=== PATIENT | male | born 1985 | race Caucasian/White ===

== ENCOUNTER 2018-06-10 09:11 | Emergency (ER) | payer OTHER, SELFPAY ==
[2018-06-10 09:12] VITALS: BP 147/82; PULSE 104; RESP 20; TEMP 36.6; O2SAT 98; BMI 31.4
--- NOTE | 2018-06-10 09:17 | ED.RN ---
PT VERY TEARFUL IN TRIAGE. WHEN ASKED IF HE HAD THOUGHTS OF COMPLETING SUICIDE PT STATES I AM NOT OPPOSED. TO DYING BUT I COULD NOT DO THAT TO MY MOM
--- NOTE | 2018-06-10 09:25 | EKG12_ITS ---
Test Reason : ANXIETY Blood Pressure : / mmHG Vent. Rate : 075 BPM Atrial Rate : 075 BPM P-R Int : 140 ms QRS Dur : 086 ms QT Int : 390 ms P-R-T Axes : 075 045 034 degrees QTc Int : 435 ms Suspect unspecified pacemaker failure Sinus rhythm with marked sinus arrhythmia Otherwise normal ECG Confirmed by CARSON DONNELLY, PAYAM ([id number]), supervising film or videotape editor SERJIO RIOS ([id number]) on 06/13/2018 1:23:36 PM Referred By: LIAN Confirmed By:PAYAM BYRD MD
--- NOTE | 2018-06-10 09:29 | ED.DCSUM_ITS ---
- ER Visit Summary Date of Service: 06/10/18 Chief Complaint: Chest pain History of Present Illness: The patient is a 33 M who presents with chest pain that has been intermittent for the past 3 days. Patient states he has been feeling anxious which makes his chest pain worse. Patient states his anxiety is related to his marital problems. Patient denies any shortness of breath. Patient admits to some nausea but denies any vomiting. Patient denies any diaphoresis. Patient states nothing else seems to make the pain better or worse. Patient does not take any medication for anxiety. Patient denies any suicidal homicidal ideations. Physical Examination: Vital signs are stable. Patient is afebrile. Patient is in no acute distress. Oral mucosa is pink and moist. Neck is supple. Trachea is midline. There is no JVD noted. Heart was regular rate and rhythm. Lungs are clear and equal bilateral. There is good respiratory effort noted. Abdomen is soft. Bowel sounds are normal. There is no tenderness noted. Cranial nerves II through XII are intact. There are no focal motor or sensory deficits noted. The remaining physical exam is within normal limits. Test Results: EKG showed a normal sinus rhythm with a rate of 75. There are no acute ST or T-wave changes noted. Chest x-ray does not show any acute cardiopulmonary process. CBC, basic metabolic profile, troponin were obtained were all within normal limits. Emergency Department Course and Treatment: Patient was given a dose of Vistaril here. Patient felt better on reevaluation. Patient was given a prescription for a short-term course of Vistaril. Patient was instructed to follow-up with his primary care physician in 3-5 days. Patient understood and was agreeable with the plan. All questions were answered. Disposition: Discharged home Impression: Acute anxiety This note was generated with [employer] dictation software. It may contain incorrect words, spelling, and punctuation that were not noted in review of the chart prior to signing ED Disposition - Plan for ED Patient: Disposition: Home or Assisted Living Chief Complaint: Anxiety Diagnosis: Acute anxiety Instructions: ED Stress React Prescriptions: hydrOXYzine pamoate capsule [Vistaril pamoate capsule] 25 mg PO TID PRN PRN 5 Days #15 cap PRN Reason: Anxiety Referrals: Triston Townsend MD [Primary Care Provider] -
[2018-06-10] MEDS: hydrOXYzine PAM 25 MG Capsule PO (09:38)
--- NOTE | 2018-06-10 09:39 | NURSING ---
NO OLD EKGS
--- NOTE | 2018-06-10 09:53 | RAD_ITS ---
STUDY: X-RAY CHEST REASON FOR EXAM: Male, 33 years old. Chest pain. TECHNIQUE: PA and lateral views of the chest. COMPARISON: None. FINDINGS: Hyperinflation. Scattered calcified granulomas. There is no demonstrated pleural abnormality. Normal size heart. Normal mediastinum and mode. Normal visualized pulmonary arteries. Normal visualized aortic arch and descending thoracic aorta. Normal visualized thoracic spine. Normal visualized ribs, clavicles, and shoulders. There is no demonstrated abnormality of the visualized soft tissue structures of the upper abdomen. RAD/Chest PA and Lateral IMPRESSION: Hyperinflation. Scattered calcified granulomas. Electronically Signed: Constantino Newsome MD at 10:24 EDT Tel [phone], Service support ,
[2018-06-10 09:56] LABS: Absolute Neutrophil Count 4.8 X10^3/uL (2.0-7.7); Basophil# 0.01 X10^3/uL; Basophil% 0.1 % (0-1); Eosinophil# 0.08 X10^3/uL; Eosinophils% 1.1 % (0-5); Hemoglobin 15.8 g/dl (13.0-16.5); Lymphocyte % 22.4 % (19-41); Mean Corp Hgb Conc 34.3 g/gl (32-36); Mean Corpuscular Hgb 31.3 pg (27.0-32.0); Mean Corpuscular Volume 91.3 fL (80-94); Monocyte# 0.67 X10^3/uL; Monocyte% 9.4 % (0-10); Neutrophil # 4.78 X10^3/uL (2.7-7.7); Neutrophil % 66.9 % (47-70); POSITIVE COUNT NO; POSITIVE DIFFERENTIAL NO; POSITIVE MORPHOLOGY NO; Platelet Count 217 K/mm3 (150-450); RBC Distribution Width CV 12.7 % (11.6-14.6); RBC Distribution Width SD 42.2 fl (35.1-43.9); Red Blood Count 5.04 M/mm3 (4.6-6.2); White Blood Count 7.2 K/mm3 (4.4-11.0)
[2018-06-10 10:07] LABS: Anion Gap 8 (5-15); BUN 11 mg/dL (7-18); BUN/Creat Ratio 11.3 RATIO (10-20); Calcium,Total 9.2 mg/dL (8.5-10.1); Chloride 104 mmol/L (98-107); Creatinine, Serum 0.97 mg/dL (0.70-1.30); EST Glomerular Filtration Rate 95 mL/min (>60); Est Glom Filt Rate - Afr Amer 115 mL/min (>60); Estimated Creatinine Clearance 116.44 ml/min; Glucose 107 mg/dL (74-106); Potassium 3.3 mmol/L (3.5-5.1); Sodium Level 139 mmol/L (136-145)
[2018-06-10 11:14] VITALS: BP 144/81; PULSE 77; RESP 16; O2SAT 99
[2018-06-10 12:06] VITALS: BP 168/87; PULSE 76; RESP 16; O2SAT 99
[2018-06-10 12:22] VITALS: BP 168/87; PULSE 71; RESP 16; O2SAT 100
== END 2018-06-10 12:23 | disposition home or self-care (01) ==
PROVIDERS: Emergency Provider Emergency Medicine; Family Provider Family Medicine; PCP Family Medicine
DX: F41.9 Anxiety disorder, unspecified (principal)
CPT/HCPCS: 71046; 80048; 84484; 85025; 93005; 99284; A4216

== ENCOUNTER 2018-07-14 15:18 | Emergency (ER) | payer OTHER, SELFPAY ==
[2018-07-14 15:19] VITALS: BP 134/86; PULSE 89; RESP 14; TEMP 36.8; O2SAT 97; BMI 31.5
--- NOTE | 2018-07-14 15:47 | RAD_ITS ---
STUDY: X-RAY - RIGHT HAND REASON FOR EXAM: Male, 33 years old. Laceration of the first and second digits. TECHNIQUE: 3 view(s) of the hand. COMPARISON: None. FINDINGS: Normal radiocarpal articulation. Normal distal radioulnar joint. Normal visualized carpal bones. Normal carpal articulations Normal carpometacarpal articulation of the thumb. Normal second through fifth carpometacarpal joints. Normal metacarpi. Normal metacarpophalangeal joint of the thumb. Normal interphalangeal joint of the thumb. Normal proximal and distal phalanges of the thumb. Normal metacarpophalangeal joints of the second through fifth fingers. Normal proximal and distal interphalangeal joints of the second through fifth fingers. Normal phalanges of the second through fifth fingers. Soft tissue swelling. RAD/Hand Min 3 Views IMPRESSION: Soft tissue swelling. No radiopaque foreign body is seen. Electronically Signed: Constantino Newsome MD at 16:07 EDT Tel [phone], Service support ,
--- NOTE | 2018-07-14 15:47 | ED.VISSUMM ---
- ER Visit Summary Date of Service: 07/14/18 Chief Complaint: Right hand laceration History of Present Illness: The patient is a 33 M presenting with right hand laceration. Patient states this occurred early this morning. He cut his right thumb on a broken beer bottle. He tried to glue it at home with no improvement. He went to his primary care physician today and was sent to the ED for further evaluation. He is right-handed. His tetanus is up-to-date. Physical Examination: Vitals are stable. Patient is afebrile. Alert no acute distress. HEENT exam is unremarkable. Lungs are clear and equal bilaterally. Heart is regular rate and rhythm. Extremities 2 cm laceration palmar aspect of proximal right thumb. Tendon function is intact. Active full range of motion. Normal cap refill. No focal neurologic deficit. Remainder of exam is unremarkable. Emergency Department Course and Treatment: X-ray right hand shows no foreign body, there is evidence of a healed boxer type fracture of the distal fifth metacarpal. Residual deformity. Wound was irrigated. Anesthetized with lidocaine. 3, 5-0 simple sutures were placed. Patient tolerated this well. Advised wound care instructions. Advised to follow-up with primary care physician. Advised return to ED for worsening complaints. Disposition: Discharge home Impression: Right hand laceration, laceration repair This note was generated with [employer] dictation software. It may contain incorrect words, spelling, and punctuation that were not noted in review of the chart prior to signing ED Disposition - Plan for ED Patient: Chief Complaint: Laceration Instructions: ED Laceration Hand Referrals: Triston Townsend MD [Primary Care Provider] -
--- NOTE | 2018-07-14 16:54 | ED.DEP ---
ED Disposition - Plan for ED Patient: Chief Complaint: Laceration Instructions: ED Laceration Hand Referrals: Triston Townsend MD [Primary Care Provider] -
== END 2018-07-14 17:16 | disposition home or self-care (01) ==
PROVIDERS: Emergency Provider Emergency Medicine; Family Provider Family Medicine; PCP Family Medicine
DX: S61.411A Laceration without foreign body of right hand, initial encounter (principal); W25.XXXA Contact with sharp glass, initial encounter; Y93.9 Activity, unspecified; Y92.009 Unspecified place in unspecified non-institutional (private) residence as the place of occurrence of the external cause; Y99.9 Unspecified external cause status
CPT/HCPCS: 12001; 73130; 99283

== ENCOUNTER 2020-02-08 10:52 | Observation (INO) | payer OTHER, SELFPAY ==
[2020-01-28 14:16] VITALS: BMI 36.6
--- NOTE | 2020-02-07 23:05 | PCM.HP.BLA ---
History and Physical Date of Admission: 02/08/20 HISTORY OF PRESENT ILLNESS 34 year old man presents with a recurrent pilonidal cyst that has worsened over the last 5 months. He first developed it about 10 years ago and had an I&D procedure. He has had no formal excision. He denies fever. He denies trauma. He does have intermittent drainage from his pilonidal cyst. Could not express any today. He is not on any antibiotics at this time. He presents at this time for further evaluation and treatment. PAST MEDICAL HISTORY Back problem Corneal laceration Finger fracture Vision problem PAST SURGICAL HISTORY appendectomy ALLERGIES No Known Allergies MEDICATIONS doxycycline monohydrate FAMILY HISTORY Unknown - Arthritis, Breast cancer, Colon cancer, Hypertension, Hyperlipidemia, CVA (cerebral vascular accident) SOCIAL HISTORY Smoking Status: Former smoker alcohol intake: current substance use type: does not use REVIEW OF SYSTEMS General - Denies fever and weight loss. Has fatigue. Eyes - Denies cataracts and glaucoma. ENT - Denies nasal congestion and sore throat. Endocrine - Denies excessive thirst and urination. Skin - Denies suspicious lesions and skin cancer. Has recurrent complicated extensive pilonidal cyst in the sacral area. Musculoskeletal - Has joint pain, joint stiffness, weakness of muscles and joints, back pain. Denies arthritis. Neuro - Denies headaches. Cardiovascular - Denies chest pain, fatigue, and shortness of breath with exertion. Psych - Denies anxiety and depression. Respiratory - Denies chronic cough and shortness of breath. Patient is a former smoker. Gastrointestinal - Denies nausea, vomiting, diarrhea, and constipation. Hematologic - Denies abnormal bruising and bleeding. Genitourinary - Denies hematuria and urinary frequency. PHYSICAL EXAMINATION General - Alert and Oriented. HEENT - PERRL. EOMI. Throat is clear. Neck - Supple and nontender. No cervical adenopathy. Lungs - Clear to auscultation. Heart - Regular rate and rhythm. Abdomen - Soft and nondistended. Extremities - FROM. No axillary adenopathy. Radial pulses are palpable. Back - In his lower back in the sacral area is an area of chronic scarring from a recurrent pilonidal cysts. There are multiple tracks present. The scar cluster measures 4.5 cm. There may be some extension to the right side. No purulent drainage could be expressed today. No fluctuance. No cellulitis. Some tenderness to palpation. Neuro - CN II-XII grossly intact. Psych - Normal mood and affect. ASSESSMENT 1. Recurrent complicated extensive pilonidal cyst sacral area with possible extension to the right. 2. Former smoker. PLAN Will send a script for Doxycycline that he will take for flare ups until his surgery is done. Recommend operative intervention with excision of this recurrent complicated extensive pilonidal cyst sacral area with possible extension to the right. Will leave the wound open and begin wound care with the VAC. Other options include daily Silver dressing changes. At the time of surgery, the tissue will be sent to Pathology for analysis to rule out carcinoma and to Microbiology for culture. A positive culture will necessitate antibiotic therapy. Surgery will be done under general anesthesia with a surgical observation overnight stay in the hospital. After discharge he will followup at the [facility]. If there is a plateau in the healing process, can proceed with delayed closure with skin grafting. Also discussed with him that this complex wound can be closed with local fasciocutaneous flaps. It would require up to 6 weeks bedrest to allow adequate healing. If the patient gets up too soon, there is increased risk of seroma formation that can lead to wound healing problems. Patient is not interested in bedrest that long. Patient was informed of the risks and complications of the procedure including alternatives to surgery. These were discussed with the patient personally. Patient voices understanding and wishes to proceed. Some of the risks and complications were included in a form from the [place] [employer].
[2020-02-08] VITALS (10 sets, daily range): BP systolic 105–160; BP diastolic 60–107; PULSE 56–78; RESP 16–18; TEMP 36.1–36.7; O2SAT 95–99; BMI 37.3
--- NOTE | 2020-02-08 | PILCYST_PTH ---
PATIENT: EREN SAWANT LOC: MS3 U#:[id number] AGE/SX: 34/M ROOM: MS318 RE02/08/[address]: Dr. Rudolph Jacques MD : [id number] BED: 1 DIS: 02/09/2020 SPEC #: [id number] RECD: 02/08/20 13:15 STATUS: AYSHA REDiann #: [id number] YESSY: 02/08/20 00:[address]: Rudolph Jacques DEPT: SURGICAL PATHOLOGY RECD BY: Ki Zheng ENTERED: 02/08/20 13:16 SP TYPE: Pilonidal OTHR DR: HERI Mejia Tissues: PILONIDAL TISSUE Procedures: Surgery Specimen Level III HEADER OPERATION: Excision pilonidal cyst, surgical prep sacral area PRE-OP DIAGNOSIS: Recurrent complicated extensive pilonidal cyst sacral area with possible extension to the right TISSUE SUBMITTED: Pilonidal cyst MICROSCOPIC DIAGNOSIS Skin and soft tissue of sacral region, excision: Pilonidal cyst. AM:jason 02/09/20 MICROSCOPIC DESCRIPTION Slides are reviewed. GROSS DESCRIPTION Received in fixative is one container labeled with the patient's name and designated pilonidal cyst. The specimen consists of a piece of skin with underlying tissue measuring 7 x 3 cm and up to 2 cm in thickness. Also present in the container is a piece of skin with underlying tissue measuring 7.5 x 0.8 cm and up to 2.5 cm in thickness. Sections do not reveal any mass lesion. Sections reveal focal pinkish, congested area measuring 1 cm in greatest dimension. Manager Field Sales sections are submitted in two cassettes. / SJ:jason 02/08/20 TC:2 CPT: 13330
[2020-02-08] MEDS: Lactated Ringers 1,000 ML 100 ML IV ×2 (09:14→11:37)
[2020-02-08] MEDS: Cefazolin 2 GM in 0.9% Normal Saline 100 ML IV (10:07)
--- NOTE | 2020-02-08 10:45 | PCM.OPRPT ---
Report of Operation Date of Procedure: 02/08/20 Pre-Operative Diagnosis: 1. Recurrent complicated extensive pilonidal cyst sacral area with possible extension to the right. 2. Former smoker. Post-Operative Diagnosis: 1. Recurrent complicated extensive pilonidal cyst sacral area with extension to the right. 2. Former smoker. Surgery/Procedure Performed:: Surgical preparation sacral area with excision complicated extensive pilonidal cyst with extension to the right (48 cm2). Description of Surgical Findings:: 34 year old man presents with a recurrent pilonidal cyst that has worsened over the last 5 months. He first developed it about 10 years ago and had an I&D procedure. He has had no formal excision. He denies fever. He denies trauma. He does have intermittent drainage from his pilonidal cyst. Could not express any today. He is not on any antibiotics at this time. Patient was informed of the risks and complications of the procedure including alternatives to surgery. These were discussed with the patient personally. Patient voices understanding and wishes to proceed. Some of the risks and complications were included in a form from the [employer]. Size of defect sacral area - 8 x 6 x 5 cm. field account director: None Type of Anesthesia:: General Specimen's removed: Pilonidal cyst sacral area to Pathology and Microbiology. Drains: None. Estimated Blood Loss (mL): 50 ml. Description of Procedure: Patient was taken to the OR in supine position and was placed under general anesthesia. He was placed in the prone position and his sacral and gluteal areas were prepped and draped in the usual fashion. Using skin prep and tape, the adjacent area was placed on stretch to get better exposure to the the pilonidal cyst area. SCD's were placed for DVT prophylaxis. Perioperative antibiotics were given intravenously. Using xylocaine with epinephrine, the pilonidal cyst area was infiltrated. After waiting 5 minutes for the anesthetic to take effect, I proceeded with excision of this complicated extensive pilonidal cyst down into the subcutaneous tissue. There were multiple extensions to the right side that were excised. Exudate and fat necrosis were seen. Extensive scarring was also seen. This abnormal scar tissue was excised down to the fascia. No bone was exposed. Bone was palpable. There was the beginning of extension inferiorly as well just inferior to the coccyx, but there was no tracking was noted toward the anal opening. Tissue that was excised was sent to Pathology for analysis to rule out carcinoma and to Microbiology for culture. A positive culture will necessitate antibiotic therapy. The wound was irrigated with saline. Hemostasis was obtained with electrocautery. The size of the defect after excision of this complicated extensive pilonidal cyst was 8 x 6 x 5 cm or 48 cm2. The wound was dressed with Mepitel nonadherent dressing followed by Kerlix gauze and Betadine, followed by dry Kerlix gauze and ABD pad for a compression dressing. Patient tolerated procedure well and sent to PACU in satisfactory condition. Patient will be sent upstairs for postop care. The VAC will be placed tomorrow. He will be discharged after the VAC is approved and he is tolerating po analgesia. After discharge he will follow up at the [facility]. Grafts/Implants Used: None. - Complications None. - Admit VTE Documentation VTE Present on Admission: No VTE Mechan Device Prophylaxis: SCD's VTE Pharm Prophylaxis ordered?: No Surgery Charges CPT - 34134 ICD-10 - L05.91, Z87.891
[2020-02-08] MEDS: Lactated Ringers 1,000 ML 60 ML IV (12:08)
[2020-02-08] MEDS: oxyCODONE 5 MG Tablet 10 MG PO ×2 (12:16→19:33)
[2020-02-08] MEDS: Cefazolin 1 GM/50 ML BAG IV (18:25)
[2020-02-08] MEDS: Docusate Sodium 100 MG Capsule PO (20:27)
[2020-02-09 01:09] VITALS: BP 115/71; PULSE 65; RESP 16; TEMP 36.6; O2SAT 99
[2020-02-09] MEDS: Cefazolin 1 GM/50 ML BAG IV ×2 (01:13→10:32)
[2020-02-09] MEDS: oxyCODONE 5 MG Tablet 10 MG PO ×3 (01:15→13:33)
[2020-02-09] MEDS: Lactated Ringers 1,000 ML 60 ML IV (01:49)
[2020-02-09 04:18] VITALS: BP 127/83; PULSE 61; RESP 14; TEMP 36.6; O2SAT 98
[2020-02-09 07:27] LABS: Hematocrit 47.4 % (40-54); Hemoglobin 15.7 g/dL (13.0-16.5); Mean Corp Hgb Conc 33.1 g/dL (32-36); Mean Corpuscular Hgb 30.8 pg (27.0-32.0); Mean Corpuscular Volume 92.9 fL (80-94); Platelet Count 185 K/mm3 (150-450); RBC Distribution Width CV 12.2 % (11.6-14.6); RBC Distribution Width SD 42.5 fl (35.1-43.9); White Blood Count 7.8 K/mm3 (4.4-11.0)
[2020-02-09] MEDS: Docusate Sodium 100 MG Capsule PO (07:39)
[2020-02-09 07:51] LABS: Anion Gap 5 (5-15); BUN 10 mg/dL (7-18); BUN/Creat Ratio 11.5 RATIO (10-20); Calcium,Total 8.8 mg/dL (8.5-10.1); Chloride 104 mmol/L (98-107); Creatinine, Serum 0.87 mg/dL (0.70-1.30); EST Glomerular Filtration Rate 107 mL/min (>60); Est Glom Filt Rate - Afr Amer 130 mL/min (>60); Estimated Creatinine Clearance 120.77 ml/min; Glucose 97 mg/dL (74-106); Potassium 4.2 mmol/L (3.5-5.1); Prealbumin 31.1 mg/dL (20.0-40.0); Sodium Level 139 mmol/L (136-145)
[2020-02-09 10:15] VITALS: BP 134/95; PULSE 77; RESP 16; TEMP 36.6; O2SAT 98
--- NOTE | 2020-02-09 10:57 | NURSING ---
wound photo: sacrum
--- NOTE | 2020-02-09 13:03 | PCM.PN.SRG ---
Subjective: Postop #1 Patient is resting comfortably. VAC applied. - Physical Exam Vitals/I&O's: Vital Signs Temp Pulse Resp BP Pulse Ox 97.8 F 77 16 134/95 H 98 02/09/20 10:15 02/09/20 10:15 02/09/20 10:15 02/09/20 10:15 02/09/20 10:15 Oxygen Delivery Method Room Air Weight: 252 lb 10.396 oz Body Mass Index (BMI) 37.3 Intake and Output for Last 24 Hours 02/07/20 02/08/20 02/09/20 23:59 23:59 23:59 Intake Total 2216.67 / 2216.67 1391 / 1391 Balance 2216.67 / 2216.67 1391 / 1391 General: Alert, Oriented x3 HEENT: PERRLA, EOMI Oral: Moist Mucosa Neck: Supple Abdomen: Soft, Non-Distended Skin: Ulcer/ Wound - sacral wound is stable. No active bleeding noted. VAC applied without difficulty. Neurological: Cranial nerves II-XII grossly intact Psych/Mental Status: Normal Affect, Appropriate Microbiology Past 72 Hours 02/08/20 10:34 Tissue - Sacral Gram Stain - Final 02/08/20 10:34 Tissue - Sacral Wound Culture - Preliminary No growth-Final to follow Laboratory Results 02/09/20 06:48: WBC 7.8, RBC 5.10, Hgb 15.7, Hct 47.4, MCV 92.9, MCH 30.8, MCHC 33.1, RDW Std Deviation 42.5, RDW Coeff of Beatriz 12.2, Plt Count 185, MPV 9.0 02/09/20 06:48: Sodium 139, Potassium 4.2, Chloride 104, Carbon Dioxide 30.0, Anion Gap 5, BUN 10, Creatinine 0.87, Estim Creat Clear Calc 120.77, Est GFR (MDRD) Af Amer 130, Est GFR (MDRD) Non-Af 107, BUN/Creatinine Ratio 11.5, Glucose 97, Calcium 8.8, Prealbumin 31.1 Current Medications Diazepam (Valium) 5 mg PO 4X/DAY PRN PRN PRN Reason: SPASMS Docusate Sodium (Colace) 100 mg PO BID JOSEPH Last Admin: 02/09/20 07:39 Dose: 100 mg Documented by: Hydromorphone HCl (Dilaudid Inj) 1 mg IV Q3H PRN PRN PRN Reason: Pain Score 6-10/10 Cefazolin Sodium () 1 gm in 50 mls @ 100 mls/hr IV Q8H [facility] Last Infusion: 02/09/20 11:02 Dose: Infused Documented by: Lactated Ringer's () 1,000 mls @ 60 mls/hr IV .[id number] [facility] Last Admin: 02/09/20 01:49 Dose: 60 mls/hr Documented by: Nutritional Formula (Paul - Rankin Flavor) 1 packet PO BIDCM [facility] Last Admin: 02/09/20 07:38 Dose: 1 packet Documented by: Ondansetron HCl (Zofran) 4 mg IV Q6H PRN PRN PRN Reason: NAUSEA Oxycodone HCl (Oxyir) 10 mg PO Q4H PRN PRN PRN Reason: Pain Score 4-5/10 Last Admin: 02/09/20 07:38 Dose: 10 mg Documented by: Promethazine HCl (Phenergan Tablet) 25 mg PO Q4H PRN PRN PRN Reason: NAUSEA/VOMITING Sodium Chloride () 10 - 40 ml IV UD PRN PRN Reason: SALINE FLUSH Medical Necessity - Tobacco Use Smoking Status: Former smoker Tobacco Use: Non-smoker Assessment/Plan 1. Recurrent complicated extensive pilonidal cyst sacral area with extension to the right. 2. Former smoker. 3. s/p surgical preparation sacral area with excision complicated extensive pilonidal cyst with extension to the right (48 cm2). Patient is tolerating po analgesia. VAC has been applied and has been approved. To be changed three times per week at 150 mmHg continuous suction. Operative culture is negative thus far. Will discharge home on Doxycycline. Prealbumin was 31.1 Encourage nutritional supplementation with protein to help the healing process. Discharge home today. Wrote script for Doxycycline. Wrote scripts for Percocet for pain (40 tabs) and for Valium for spasm (30 tabs). Wrote script for Colace for constipation (60 tabs). Followup at [facility] next Saturday02/15/20.
--- NOTE | 2020-02-09 13:21 | PCM.DC ---
You will use the following diet at home:: No restrictions, Other - encourage nutritional supplementation with protein to help the healing process. Discharge Activity: May not drive while taking narcotic pain medications., May Shower - on the days the vac is changed. May shower in (days): 2 - on the days the vac is changed. May resume sexual activity in: No Restrictions Weight Bearing Status: Weight bearing as tolerated Call your doctor if your incision/area has: Continuous Slow Oozing, Sudden Increased Bleeding, Increased Pain/ Swelling, Increased Redness, Foul Smelling Discharge, Swelling at the incision site Call your doctor if you observe: Fever of 101 or Higher, Coldness, Increased Pain, Shortness of breath, Chest pain, Calf discomfort, Uncontrolled pain Suture Line Care: - - vac changes three times per week at 150 mmHg continuous suction. Change Dressing in (Days):: 2 - vac changes three times per week. Cleanse incision/area with: Soap & Water - may cleanse the wound with soap and water at the time of the vac change., - - may shower on the days the vac is changed. Allergies/Adverse Reactions: Allergies No Known Allergies Allergy (Verified 02/08/20 08:51) Medications to take at Discharge Diazepam [Valium] 5 mg PO 4X/DAY PRN PRN #30 tablet 02/09/20 Docusate Sodium [Colace] 100 mg PO BID #60 cap 02/09/20 Doxycycline Monohydrate 100 mg PO BID 14 Days #28 cap 02/09/20 Oxycodone HCl/Acetaminophen [Percocet 5/325] 1 tablet PO Q4H PRN PRN 7 Days #40 tablet 02/09/20 The following prescriptions were given: Docusate Sodium [Colace] 100 mg PO BID #60 cap Transmission Status: Sent to [address] Doxycycline Monohydrate 100 mg PO BID 14 Days #28 cap Transmission Status: Pending to [address] Oxycodone HCl/Acetaminophen [Percocet 5/325] 1 tablet PO Q4H PRN PRN 7 Days #40 tablet PRN Reason: Pain Score 4-5/10 [facility] [place] [id number] Diazepam [Valium] 5 mg PO 4X/DAY PRN PRN #30 tablet PRN Reason: Spasms Transmission Status: Received by [id number] [facility] Primary Care Physician: Ernesto Mason PA [Primary Care Provider] - Test Results: Test results from this visit will be discussed in further detail at your follow-up appointment, if applicable. Please Follow Up With: Rudolph Jacques MD - call [phone] if any questions. When: saturday02/15/20 at [facility] at 1030am. Proposed Discharge Date: 02/09/20
--- NOTE | 2020-02-09 13:52 | NURSING ---
Pt switched over to the home VAC. pt and deny questions. proof of delivery form signed and faxed to [facility].
--- NOTE | 2020-02-09 14:14 | CASEMGMT ---
ANGELINE VASQUEZ updated that patient will need HHC for vac changes at discharge. ANGELINE VASQUEZ in to discuss with patient and . states she works for [facility] and they have already started auth for patient. states HHC will need order and instructions at discharge. ANGELINE VASQUEZ faxed referral to [facility]. ANGELINE VASQUEZ updated and patient. No further questions at this time.
== END 2020-02-09 14:14 | disposition home health service (06) ==
LOC: SDC 11:23 → MS3 11:23
PROVIDERS: Admitting Provider Surgery; PCP Physician Assistant; Referring Provider Surgery; Visit Provider Surgery
PROC: (CPT 11771; principal; 2020-02-08 09:45)
DX: L05.91 Pilonidal cyst without abscess (principal); Z87.891 Personal history of nicotine dependence
CPT/HCPCS: 00300; 11771; 36415; 80048; 84134; 85027; 87070; 87075; 87077; 87102; 87186; 87205; 87206; 88304; 96365; 96366; 99218; 99251; J7120; G0378; G0463; J2405

== ENCOUNTER 2020-02-22 13:00 | Outpatient (RCR) | payer OTHER, SELFPAY ==
[2020-02-08 11:54] VITALS: BMI 37.3
[2020-02-15 10:44] VITALS: BP 113/77; PULSE 80; RESP 18; TEMP 36.2; BMI 35.9
--- NOTE | 2020-02-15 17:23 | PCM.WC.PN ---
Type of Wound Date of Service: 02/15/20 Chief Complaint: Open surgical wound sacral area. History of Wound: Surgery 02/08/20 - Surgical preparation sacral area with excision complicated extensive pilonidal cyst with extension to the right (48 cm2). Wound care - VAC. Operative culture - Staphylococcus epidermidis and Staphylococcus lugdunensis. He was placed on Doxycycline. Pathology - pilonidal cyst. Prealbumin from 02/09/20 was 31.1. Encourage nutritional supplementation with protein to help the healing process. He is tolerating the VAC changes with Percocet and Valium. Today he denies fever. His appetite is good. Progress of Wound: Improved since surgery on 02/08/20. - Physical Exam Vital Signs Temp Pulse Resp BP 97.2 F L 80 18 113/77 02/15/20 10:44 02/15/20 10:44 02/15/20 10:44 02/15/20 10:44 Wound Measurements and Assessment WC - Nurse 1 - General Ulcer Measurement Start: 02/15/20 10:44 Freq: Status: Active Protocol: Activity Type Activity Date Activity User E-Sign Co-Sign Detail Recorded Client Recorded Date Recorded By Document 02/15/20 10:44 MW [id number] 02/15/20 11:01 MW 02/15/20 10:44 Wound Center Nurse 1 [Ulcer Assessment] #1 sacrum - pilonidal -Combined with other wound No -Current Size (cm) - Length 9.5 -Current Size (cm) - Width 4.2 -Current Size (cm) - Depth 5.4 -Total Square Cm 39.90 -Date of Last Picture (Recall this 02/15/20 field) -Photo Taken Yes -Epithelialization None Present -Tunneling No -Undermining/Tunneling No -Circular Undermining No -Exudate Amt Large -Exudate Type Serosanguineous -Wound Margin Distinct, Outline Attached -Granulation Amt Medium (34-66%) -Granulation Quality Red -Slough/Fibrin Yes -Necrosis Amt Medium (34-66%) -Necrotic Tissue Type Adherent Slough -Structure Exposed N/A -Texture (Dianelys-wound Skin Appearance) Assessed, Scarring -Moisture (Dianelys-wound Skin Appearance No Abnormality, ) Assessed -Color (Dianelys-wound Skin Appearance) No Abnormality, Assessed -Temperature (Dianelys-wound Skin No Abnormality Appearance) (Pt Warm) -Tenderness on Palpation (Dianelys-wound No Skin Appearance) -Ulcer Cleansing soap and water -Foul Odor after Cleansing No -Anesthetic Used 4% Lidocaine Solution,5% Lidocaine Gel [Edema Assessment] -Lower Limb Edema Present No Debridement Note Wound debrided: #1 Sacral area. Laterality: Not Applicable Wound Grade/Stage: 2. No debridement was completed today - He had recent surgery on 02/08/20. Assessment/Plan Assessment: 1. Recurrent complicated extensive pilonidal cyst sacral area with extension to the right. 2. Open surgical wound sacral area. 3. Former smoker. 4. s/p surgical preparation sacral area with excision complicated extensive pilonidal cyst with extension to the right (48 cm2). Plan: Continue VAC to the sacral area. Instructed the patient's who is a nurse and is doing the VAC changes to press down to the bone and make sure the black foam goes to the bone. There is the risk that if it is placed too superficially, healing occurs rapidly on a superficial level and the deeper wound becomes closed which can accumulate fluid leading to a recurrence. She voiced understanding. Operative cultures showed Staphylococcus epidermidis and Staphylococcus lugdunensis. He was placed on Doxycycline. Prealbumin from 02/09/20 was 31.1. Encourage nutritional supplementation with protein to help the healing process. Renewed his Percocet for pain (40 tabs) and his Valium for spasm (30 tabs). Followup one week. [id number]: [id number] Global Visit - ICD-10 - Z48.89, L05.91, S31.000A, Z87.891
[2020-02-22 13:12] VITALS: BP 128/84; PULSE 98; RESP 20; TEMP 37.2; BMI 35.9
--- NOTE | 2020-02-22 14:59 | PCM.WC.PN ---
(1) Open wound of lower back Status: Acute Current Visit: Yes Code(s): S31.000A - Unspecified open wound of lower back and pelvis without penetration into retroperitoneum, initial encounter Comment: open surgical wound lower back and sacral area (2) Pilonidal cyst without infection Status: Chronic Current Visit: No Code(s): L05.91 - Pilonidal cyst without abscess Comment: 4.5 cm recurrent complicated extensive pilonidal cyst with possible extension to the right (3) Former smoker Status: Chronic Current Visit: Yes Code(s): Z87.891 - Personal history of nicotine dependence Type of Wound Date of Service: 02/22/20 Chief Complaint: Open surgical wound sacral area. History of Wound: Surgery 02/08/20 - Surgical preparation sacral area with excision complicated extensive pilonidal cyst with extension to the right (48 cm2). Wound care - VAC. Operative culture - Staphylococcus epidermidis and Staphylococcus lugdunensis. He was placed on Doxycycline. Pathology - pilonidal cyst. Prealbumin from 02/09/20 was 31.1. Encourage nutritional supplementation with protein to help the healing process. He is tolerating the VAC changes with Percocet and Valium. Today he denies fever. His appetite is good. Progress of Wound: Improved since surgery on 02/08/20. - Physical Exam Vital Signs Temp Pulse Resp BP 98.9 F 98 20 H 128/84 H 02/22/20 13:12 02/22/20 13:12 02/22/20 13:12 02/22/20 13:12 General: Alert, Oriented x3, Cooperative HEENT: Atraumatic Oral: Moist Mucosa Lungs: Normal air movement Cardiovascular: Regular rate Abdomen: Soft Extremities: Capillary Refill Less than 3 Seconds Skin: Ulcer/ Wound - Sacral wound Wound Measurements and Assessment WC - Nurse 1 - General Ulcer Measurement Start: 02/15/20 10:44 Freq: Status: Active Protocol: Activity Type Activity Date Activity User E-Sign Co-Sign Detail Recorded Client Recorded Date Recorded By Document 02/22/20 13:12 DL [id number] 02/22/20 13:18 DL 02/22/20 13:12 Wound Center Nurse 1 [Ulcer Assessment] #1 sacrum - pilonidal -Current Size (cm) - Length 8.4 -Current Size (cm) - Width 4.4 -Current Size (cm) - Depth 5 -Total Square Cm 36.96 -Photo Taken No -Exudate Amt Medium -Exudate Type Serosanguineous -Wound Margin Distinct, Outline Attached -Granulation Amt Large (67-100%) -Granulation Quality Red -Necrosis Amt Small (1-33%) -Necrotic Tissue Type Adherent Slough -Structure Exposed N/A -Texture (Dianelys-wound Skin Appearance) No Abnormality -Moisture (Dianelys-wound Skin Appearance No Abnormality ) -Color (Dianelys-wound Skin Appearance) No Abnormality -Temperature (Dianelys-wound Skin No Abnormality Appearance) (Pt Warm) -Tenderness on Palpation (Dianelys-wound No Skin Appearance) -Ulcer Cleansing Wound Cleanser -Foul Odor after Cleansing No -Anesthetic Used 4% Lidocaine Solution WC - Nurse 2 - General Ulcer CM Notes Start: 02/15/20 10:44 Freq: Status: Active Protocol: Activity Type Activity Date Activity User E-Sign Co-Sign Detail Recorded Client Recorded Date Recorded By Document 02/22/20 13:29 MW [id number] 02/22/20 13:33 MW 02/22/20 13:29 Wound Center Nurse 2 [Procedure/Treatment] -Time 13:29 -Correct Patient Yes -Correct Side, Site, Position Yes -Correct Procedure Yes -Procedure Performed Yes -Type of Procedure Debridement -Clinical Debridement Subcutaneous -Post Debridement Size (cm) - Length 8.4 -Post Debridement Size (cm) - Width 4.4 -Post Debridement Size (cm) - Depth 4.6 -Total Square Cm 36.96 -Wound/Ulcer Outcome Not Healed -Ulcer Cleansing Rinsed/ Irrigated with Saline -Foul Odor after Cleansing No -Bioengineered Tissue No -Bleeding Controlled with Pressure -Offloading No -Treatment Response Procedure Tolerated Well [See Physician Procedure note for Specifics] Pain Scale: 0-10 Numeric [Pain] -Is Patient Pain Free? Yes Musculoskeletal: No Tenderness to Palpation of Joints or Extremities Neurological: Neuro grossly intact Psych/Mental Status: Normal Affect, Appropriate Debridement Note Post-Debridement Measurements/Treatment WC - Nurse 2 - General Ulcer CM Notes Start: 02/15/20 10:44 Freq: Status: Active Protocol: Activity Type Activity Date Activity User E-Sign Co-Sign Detail Recorded Client Recorded Date Recorded By Document 02/22/20 13:29 MW [id number] 02/22/20 13:33 MW 02/22/20 13:29 Wound Center Nurse 2 #1 sacrum - pilonidal -Time 13:29 -Correct Patient Yes -Correct Side, Site, Position Yes -Correct Procedure Yes -Procedure Performed Yes -Type of Procedure Debridement -Clinical Debridement Subcutaneous -Post Debridement Size (cm) - Length 8.4 -Post Debridement Size (cm) - Width 4.4 -Post Debridement Size (cm) - Depth 4.6 -Total Square Cm 36.96 -Wound/Ulcer Outcome Not Healed -Ulcer Cleansing Rinsed/ Irrigated with Saline -Foul Odor after Cleansing No -Bioengineered Tissue No -Bleeding Controlled with Pressure -Offloading No -Treatment Response Procedure Tolerated Well Pain Scale: 0-10 Numeric Is Patient Pain Free? Yes Wound debrided: Sacral wound Type of Debridement: Excisional debridement Anesthesia Used: 5% Lidocaine Gel Depth: Down to and including healthy tissue, in the subcutaneous layer Percentage of wound debrided: 100 Instrument Used: 7mm curette Tissue Removed: Subcutaneous tissue and slough into the muscle Severity: Fat Layer Exposed Bleeding Controlled with: Pressure Patient tolerated procedure well Assessment/Plan Active Problems Open wound of lower back (Acute) open surgical wound lower back and sacral area Former smoker (Chronic) Assessment: 1. Recurrent complicated extensive pilonidal cyst sacral area with extension to the right. 2. Open surgical wound sacral area. 3. Former smoker. 4. s/p surgical preparation sacral area with excision complicated extensive pilonidal cyst with extension to the right (48 cm2). Plan: Continue VAC to the sacral area. Instructed the patient's who is a nurse and is doing the VAC changes to press down to the bone and make sure the black foam goes to the bone. There is the risk that if it is placed too superficially, healing occurs rapidly on a superficial level and the deeper wound becomes closed which can accumulate fluid leading to a recurrence. She voiced understanding. Operative cultures showed Staphylococcus epidermidis and Staphylococcus lugdunensis. He was placed on Doxycycline. Prealbumin from 02/09/20 was 31.1. Encourage nutritional supplementation with protein to help the healing process. Renewed his Percocet for pain (28 tabs) and his Valium for spasm (21 tabs), PDMP reviewed. Followup one week. 111xxx-113xx: [id number] Global Visit
== END 2020-02-23 23:59 ==
LOC: WC 13:00
PROVIDERS: PCP Physician Assistant; Visit Provider Surgery
DX: L05.91 Pilonidal cyst without abscess (principal); Z87.891 Personal history of nicotine dependence; L98.422 Non-pressure chronic ulcer of back with fat layer exposed
CPT/HCPCS: 11043; 11046; 97605; 97606; 99213; G0463

== ENCOUNTER 2020-03-14 13:00 | Outpatient (RCR) | payer OTHER, SELFPAY ==
[2020-02-24 01:01] VITALS: BP 128/84; PULSE 98; RESP 20; TEMP 37.2
[2020-02-29 13:46] VITALS: BP 125/68; PULSE 86; RESP 16; TEMP 36.6; BMI 35.9
--- NOTE | 2020-02-29 15:55 | PCM.WC.PN ---
(1) Open wound of lower back Status: Acute Current Visit: Yes Code(s): S31.000A - Unspecified open wound of lower back and pelvis without penetration into retroperitoneum, initial encounter Comment: open surgical wound lower back and sacral area (2) Former smoker Status: Chronic Current Visit: Yes Code(s): Z87.891 - Personal history of nicotine dependence (3) Pilonidal cyst without infection Status: Chronic Current Visit: Yes Code(s): L05.91 - Pilonidal cyst without abscess Comment: 4.5 cm recurrent complicated extensive pilonidal cyst with possible extension to the right Type of Wound Date of Service: 02/29/20 Chief Complaint: Open surgical wound sacral area. History of Wound: Surgery 02/08/20 - Surgical preparation sacral area with excision complicated extensive pilonidal cyst with extension to the right (48 cm2). Wound care - VAC. Operative culture - Staphylococcus epidermidis and Staphylococcus lugdunensis. He was placed on Doxycycline. Pathology - pilonidal cyst. Prealbumin from 02/09/20 was 31.1. Encourage nutritional supplementation with protein to help the healing process. He is tolerating the VAC changes with Percocet and Valium. Today he denies fever. His appetite is good. Progress of Wound: Improved since surgery on 02/08/20. - Physical Exam Vital Signs Temp Pulse Resp BP 97.9 F 86 16 125/68 H 02/29/20 13:46 02/29/20 13:46 02/29/20 13:46 02/29/20 13:46 General: Alert, Oriented x3, Cooperative HEENT: Atraumatic Oral: Moist Mucosa Lungs: Normal air movement Cardiovascular: Regular rate Extremities: Capillary Refill Less than 3 Seconds Skin: Ulcer/ Wound - Sacral ulcer is beefy pink. The inferior portion has a tunnel. Wound Measurements and Assessment WC - Nurse 1 - General Ulcer Measurement Start: 02/29/20 13:45 Freq: Status: Active Protocol: Activity Type Activity Date Activity User E-Sign Co-Sign Detail Recorded Client Recorded Date Recorded By Document 02/29/20 13:46 MW [id number] 02/29/20 13:54 MW 02/29/20 13:46 Wound Center Nurse 1 [Ulcer Assessment] #1 sacrum - pilonidal -Combined with other wound No -Current Size (cm) - Length 8.5 -Current Size (cm) - Width 4.0 -Current Size (cm) - Depth 3.6 -Total Square Cm 34.00 -Photo Taken No -Epithelialization Small 1-33% -Tunneling No -Undermining/Tunneling No -Circular Undermining No -Exudate Amt Large -Exudate Type Serosanguineous -Wound Margin Distinct, Outline Attached -Granulation Amt Large (67-100%) -Granulation Quality Red -Slough/Fibrin Yes -Necrosis Amt Small (1-33%) -Necrotic Tissue Type Adherent Slough -Structure Exposed N/A -Texture (Dianelys-wound Skin Appearance) Assessed, Scarring -Moisture (Dianelys-wound Skin Appearance No Abnormality, ) Assessed -Color (Dianelys-wound Skin Appearance) No Abnormality, Assessed -Temperature (Dianelys-wound Skin No Abnormality Appearance) (Pt Warm) -Tenderness on Palpation (Dianelys-wound Yes Skin Appearance) -Ulcer Cleansing soap and water -Foul Odor after Cleansing No -Anesthetic Used 4% Lidocaine Solution [Edema Assessment] -Lower Limb Edema Present No WC - Nurse 2 - General Ulcer CM Notes Start: 02/29/20 13:45 Freq: Status: Active Protocol: Activity Type Activity Date Activity User E-Sign Co-Sign Detail Recorded Client Recorded Date Recorded By Document 02/29/20 14:23 [id number] 02/29/20 14:25 02/29/20 14:23 Wound Center Nurse 2 [Procedure/Treatment] #1 sacrum - pilonidal -Time 14:24 -Correct Patient Yes -Correct Side, Site, Position Yes -Correct Procedure Yes -Procedure Performed Yes -Type of Procedure Debridement -Clinical Debridement Subcutaneous -Post Debridement Size (cm) - Length 8.0 -Post Debridement Size (cm) - Width 3.5 -Post Debridement Size (cm) - Depth 4.8 -Total Square Cm 28.00 -Wound/Ulcer Outcome Not Healed -Ulcer Cleansing Rinsed/ Irrigated with Saline -Foul Odor after Cleansing No -Bioengineered Tissue No -Bleeding Controlled with Pressure -Offloading No -Treatment Response Procedure Tolerated Well [See Physician Procedure note for Specifics] Pain Scale: 0-10 Numeric [Pain] -Is Patient Pain Free? Yes Musculoskeletal: No Tenderness to Palpation of Joints or Extremities Neurological: Neuro grossly intact Psych/Mental Status: Normal Affect, Appropriate Debridement Note Post-Debridement Measurements/Treatment WC - Nurse 2 - General Ulcer CM Notes Start: 02/29/20 13:45 Freq: Status: Active Protocol: Activity Type Activity Date Activity User E-Sign Co-Sign Detail Recorded Client Recorded Date Recorded By Document 02/29/20 14:23 [id number] 02/29/20 14:25 02/29/20 14:23 Wound Center Nurse 2 #1 sacrum - pilonidal -Time 14:24 -Correct Patient Yes -Correct Side, Site, Position Yes -Correct Procedure Yes -Procedure Performed Yes -Type of Procedure Debridement -Clinical Debridement Subcutaneous -Post Debridement Size (cm) - Length 8.0 -Post Debridement Size (cm) - Width 3.5 -Post Debridement Size (cm) - Depth 4.8 -Total Square Cm 28.00 -Wound/Ulcer Outcome Not Healed -Ulcer Cleansing Rinsed/ Irrigated with Saline -Foul Odor after Cleansing No -Bioengineered Tissue No -Bleeding Controlled with Pressure -Offloading No -Treatment Response Procedure Tolerated Well Pain Scale: 0-10 Numeric Is Patient Pain Free? Yes Wound debrided: Sacral ulcer Type of Debridement: Excisional debridement Anesthesia Used: 4% Lidocaine Solution, 5% Lidocaine Gel Depth: Down to and including healthy tissue, in the subcutaneous layer Percentage of wound debrided: 100 Instrument Used: 5mm curette Tissue Removed: Subcutaneous tissue and slough Severity: Fat Layer Exposed Amount of bleeding with debridement: Mild Bleeding Controlled with: Compression and gauze Patient tolerated procedure well Assessment/Plan Active Problems (Last Reviewed 01/30/20 @ 21:[address] Rudolph Jacques MD) Open wound of lower back (Acute) open surgical wound lower back and sacral area Former smoker (Chronic) Pilonidal cyst without infection (Chronic) 4.5 cm recurrent complicated extensive pilonidal cyst with possible extension to the right Assessment: 1. Recurrent complicated extensive pilonidal cyst sacral area with extension to the right. 2. Open surgical wound sacral area. 3. Former smoker. 4. s/p surgical preparation sacral area with excision complicated extensive pilonidal cyst with extension to the right (48 cm2). Plan: Continue VAC to the sacral area. Instructed the patient's who is a nurse and is doing the VAC changes to press down to the bone and make sure the black foam goes to the bone, especially on the inferior portion of the ulcer. There is the risk that if it is placed too superficially, healing occurs rapidly on a superficial level and the deeper wound becomes closed which can accumulate fluid leading to a recurrence. She voiced understanding. Operative cultures showed Staphylococcus epidermidis and Staphylococcus lugdunensis. He was placed on Doxycycline. Prealbumin from 02/09/20 was 31.1. Encourage nutritional supplementation with protein to help the healing process. Renewed his Percocet for pain (21 tabs), PDMP reviewed. Followup two weeks. 111xxx-113xx: [id number] Global Visit
[2020-03-14 13:09] VITALS: BP 129/79; PULSE 88; RESP 18; TEMP 36.6; BMI 35.9
--- NOTE | 2020-03-14 21:27 | PCM.WC.PN ---
Type of Wound Date of Service: 03/14/20 Chief Complaint: Nonhealing ulcer sacral area. History of Wound: Surgery 02/08/20 - Surgical preparation sacral area with excision complicated extensive pilonidal cyst with extension to the right (48 cm2). Wound care - VAC. Operative culture - Staphylococcus epidermidis and Staphylococcus lugdunensis. He was placed on Doxycycline. Pathology - pilonidal cyst. Prealbumin from 02/09/20 was 31.1. Encourage nutritional supplementation with protein to help the healing process. He is tolerating the VAC changes with Percocet and Valium. Today he denies fever. His appetite is good. Progress of Wound: Improved. - Physical Exam Vital Signs Temp Pulse Resp BP 97.8 F 88 18 129/79 H 03/14/20 13:09 03/14/20 13:09 03/14/20 13:09 03/14/20 13:09 Wound Measurements and Assessment WC - Nurse 1 - General Ulcer Measurement Start: 02/29/20 13:45 Freq: Status: Active Protocol: Activity Type Activity Date Activity User E-Sign Co-Sign Detail Recorded Client Recorded Date Recorded By Document 03/14/20 13:09 DL [id number] 03/14/20 13:19 DL 03/14/20 13:09 Wound Center Nurse 1 [Ulcer Assessment] #1 sacrum - pilonidal -Current Size (cm) - Length 6.2 -Current Size (cm) - Width 4.2 -Current Size (cm) - Depth 3 -Total Square Cm 26.04 -Photo Taken No -Exudate Amt Small -Exudate Type Serosanguineous -Wound Margin Distinct, Outline Attached -Granulation Amt Large (67-100%) -Granulation Quality Red -Necrosis Amt None Present (0 %) -Structure Exposed N/A -Texture (Dianelys-wound Skin Appearance) Scarring -Moisture (Dianelys-wound Skin Appearance No Abnormality ) -Color (Dianelys-wound Skin Appearance) No Abnormality -Temperature (Dianelys-wound Skin No Abnormality Appearance) (Pt Warm) -Tenderness on Palpation (Dianelys-wound No Skin Appearance) -Ulcer Cleansing Wound Cleanser -Anesthetic Used 4% Lidocaine Solution WC - Nurse 2 - General Ulcer CM Notes Start: 02/29/20 13:45 Freq: Status: Active Protocol: Activity Type Activity Date Activity User E-Sign Co-Sign Detail Recorded Client Recorded Date Recorded By Document 03/14/20 13:41 [id number] 03/14/20 13:43 03/14/20 13:41 Wound Center Nurse 2 [Procedure/Treatment] -Time 13:42 -Correct Patient Yes -Correct Side, Site, Position Yes -Correct Procedure Yes -Procedure Performed Yes -Type of Procedure Debridement -Clinical Debridement Subcutaneous -Post Debridement Size (cm) - Length 6.5 -Post Debridement Size (cm) - Width 2.8 -Post Debridement Size (cm) - Depth 2.5 -Total Square Cm 18.20 -Wound/Ulcer Outcome Not Healed -Ulcer Cleansing Rinsed/ Irrigated with Saline -Foul Odor after Cleansing No -Bioengineered Tissue No -Bleeding Controlled with Pressure -Offloading No -Treatment Response Procedure Tolerated Well [See Physician Procedure note for Specifics] Pain Scale: 0-10 Numeric [Pain] -Is Patient Pain Free? Yes Debridement Note Post-Debridement Measurements/Treatment WC - Nurse 2 - General Ulcer CM Notes Start: 02/29/20 13:45 Freq: Status: Active Protocol: Activity Type Activity Date Activity User E-Sign Co-Sign Detail Recorded Client Recorded Date Recorded By Document 02/29/20 14:23 [id number] 02/29/20 14:25 Document 03/14/20 13:41 [id number] 03/14/20 13:43 02/29/20 03/14/20 14:23 13:41 Wound Center Nurse 2 #1 sacrum - pilonidal -Time 14:24 13:42 -Correct Patient Yes Yes -Correct Side, Site, Position Yes Yes -Correct Procedure Yes Yes -Procedure Performed Yes Yes -Type of Procedure Debridement Debridement -Clinical Debridement Subcutaneous Subcutaneous -Post Debridement Size (cm) - Length 8.0 6.5 -Post Debridement Size (cm) - Width 3.5 2.8 -Post Debridement Size (cm) - Depth 4.8 2.5 -Total Square Cm 28.00 18.20 -Wound/Ulcer Outcome Not Healed Not Healed -Ulcer Cleansing Rinsed/ Rinsed/ Irrigated with Irrigated with Saline Saline -Foul Odor after Cleansing No No -Bioengineered Tissue No No -Bleeding Controlled with Pressure Pressure -Offloading No No -Treatment Response Procedure Procedure Tolerated Well Tolerated Well Pain Scale: 0-10 Numeric Is Patient Pain Free? Yes Yes Wound debrided: #1 Sacral area. Laterality: Not Applicable Wound Grade/Stage: 2. Type of Debridement: Excisional debridement Anesthesia Used: 4% Lidocaine Solution Depth: Down to and including healthy tissue, in the subcutaneous layer Percentage of wound debrided: 100 Instrument Used: 5mm curette Tissue Removed: subcutaneous tissue. Severity: Fat Layer Exposed Amount of bleeding with debridement: Mild Bleeding Controlled with: Pressure Patient tolerated procedure well Assessment/Plan Assessment: 1. Recurrent complicated extensive pilonidal cyst sacral area with extension to the right. 2. Nonhealing ulcer sacral area. 3. Former smoker. 4. s/p surgical preparation sacral area with excision complicated extensive pilonidal cyst with extension to the right (48 cm2). Plan: The ulcer continues to improve. Will stop the VAC for a holiday and start Dakin's dressing changes. Instructed the patient's who is a nurse to continue to press down to the bone and make sure the dressing goes to the depth of the ulcer. There is the risk that if it is placed too superficially, healing occurs rapidly on a superficial level and the deeper ulcer becomes closed which can accumulate fluid leading to a recurrence. She voiced understanding. Operative cultures showed Staphylococcus epidermidis and Staphylococcus lugdunensis. He was placed on Doxycycline. Prealbumin from 02/09/20 was 31.1. Encourage nutritional supplementation with protein to help the healing process. Renewed his Percocet for pain (20 tabs) and his Valium for spasm (20 tabs) last 03/11/20. Followup 2 weeks. 111xxx-113xx: [id number] Global Visit - ICD-10 - Z48.89, L05.91, L98.492, Z87.891
== END 2020-03-24 23:59 ==
LOC: WC 13:00
PROVIDERS: PCP Physician Assistant; Visit Provider Surgery
DX: L05.91 Pilonidal cyst without abscess (principal); L98.422 Non-pressure chronic ulcer of back with fat layer exposed; Z79.899 Other long term (current) drug therapy; Z87.891 Personal history of nicotine dependence
CPT/HCPCS: 11042; 11045; 97605

== ENCOUNTER 2020-04-11 13:00 | Outpatient (RCR) | payer OTHER, SELFPAY ==
[2020-03-25 00:19] VITALS: BP 129/79; PULSE 88; RESP 18; TEMP 36.6
[2020-03-28 13:12] VITALS: BP 134/86; PULSE 91; RESP 18; TEMP 37.1; BMI 35.9
--- NOTE | 2020-03-28 14:39 | PN.PCM_ITS ---
(1) Chronic ulcer of sacral region with fat layer exposed Status: Chronic Current Visit: Yes Code(s): L98.492 - Non-pressure chronic ulcer of skin of other sites with fat layer exposed (2) Former smoker Status: Chronic Current Visit: Yes Code(s): Z87.891 - Personal history of nicotine dependence (3) Pilonidal cyst without infection Status: Chronic Current Visit: Yes Code(s): L05.91 - Pilonidal cyst without abscess Comment: 4.5 cm recurrent complicated extensive pilonidal cyst with possible extension to the right Type of Wound Date of Service: 03/28/20 Chief Complaint: Nonhealing ulcer sacral area. History of Wound: Surgery 02/08/20 - Surgical preparation sacral area with excision complicated extensive pilonidal cyst with extension to the right (48 cm2). Wound care - VAC. Operative culture - Staphylococcus epidermidis and Staphylococcus lugdunensis. He was placed on Doxycycline. Pathology - pilonidal cyst. Prealbumin from 02/09/20 was 31.1. Encourage nutritional vang pplementation with protein to help the healing process. He is tolerating the VAC changes with Percocet and Valium. Today he denies fever. His appetite is good. Progress of Wound: Improved, he continues to have depth on the superior portion of the ulcer. - Physical Exam Vital Signs Temp Pulse Resp BP 98.7 F 91 18 134/86 H 03/28/20 13:12 03/28/20 13:12 03/28/20 13:12 03/28/20 13:12 General: Alert, Oriented x3, Cooperative HEENT: Atraumatic Oral: Moist Mucosa Lungs: Normal air movement Cardiovascular: Regular rate Extremities: No edema, Capillary Refill Less than 3 Seconds Skin: Ulcer/ Wound - Sacral/pilonidal ulcer area with tunnel/depth on the superior portion of the ulcer. Wound Measurements and Assessment WC - Nurse 1 - General Ulcer Measurement Start: 03/28/20 13:12 Freq: Status: Active Protocol: Activity Type Activity Date Activity User E-Sign Co-Sign Detail Recorded Client Recorded Date Recorded By Document 03/28/20 13:12 DL [id number] 03/28/20 13:20 DL 03/28/20 13:12 Wound Center Nurse 1 [Ulcer Assessment] #1 sacrum - pilonidal -Current Size (cm) - Length 4 -Current Size (cm) - Width 1.1 -Current Size (cm) - Depth 1 -Total Square Cm 4.4 -Photo Taken No -Exudate Amt Small -Exudate Type Serosanguineous -Wound Margin Distinct, Outline Attached -Granulation Amt Medium (34-66%) -Granulation Quality Red -Necrosis Amt Medium (34-66%) -Necrotic Tissue Type Adherent Slough -Structure Exposed N/A -Texture (Dianelys-wound Skin Appearance) Excoriation, Scarring -Moisture (Dianelys-wound Skin Appearance No Abnormality ) -Color (Dianelys-wound Skin Appearance) Rubor -Temperature (Dianelys-wound Skin No Abnormality Appearance) (Pt Warm) -Tenderness on Palpation (Dianelys-wound No Skin Appearance) -Ulcer Cleansing Wound Cleanser -Foul Odor after Cleansing No -Anesthetic Used 4% Lidocaine Solution WC - Nurse 2 - General Ulcer CM Notes Start: 03/28/20 13:12 Freq: Status: Active Protocol: Activity Type Activity Date Activity User E-Sign Co-Sign Detail Recorded Client Recorded Date Recorded By Document 03/28/20 13:35 [id number] 03/28/20 13:36 MICHAEL 03/28/20 13:35 Wound Center Nurse 2 [Procedure/Treatment] -Time 13:35 -Correct Patient Yes -Correct Side, Site, Position Yes -Correct Procedure Yes -Procedure Performed Yes -Type of Procedure Debridement -Clinical Debridement Subcutaneous -Post Debridement Size (cm) - Length 6.5 -Post Debridement Size (cm) - Width 1.5 -Post Debridement Size (cm) - Depth 2.5 -Total Square Cm 9.75 -Wound/Ulcer Outcome Not Healed -Ulcer Cleansing Rinsed/ Irrigated with Saline -Foul Odor after Cleansing No -Bioengineered Tissue No -Bleeding Controlled with Pressure -Offloading No -Treatment Response Procedure Tolerated Well [See Physician Procedure note for Specifics] Pain Scale: 0-10 Numeric [Pain] -Is Patient Pain Free? Yes Musculoskeletal: No Tenderness to Palpation of Joints or Extremities Neurological: Neuro grossly intact Psych/Mental Status: Normal Affect, Appropriate Debridement Note Post-Debridement Measurements/Treatment WC - Nurse 2 - General Ulcer CM Notes Start: 03/28/20 13:12 Freq: Status: Active Protocol: Activity Type Activity Date Activity User E-Sign Co-Sign Detail Recorded Client Recorded Date Recorded By Document 03/28/20 13:35 [id number] 03/28/20 13:36 MICHAEL 03/28/20 13:35 Wound Center Nurse 2 #1 sacrum - pilonidal -Time 13:35 -Correct Patient Yes -Correct Side, Site, Position Yes -Correct Procedure Yes -Procedure Performed Yes -Type of Procedure Debridement -Clinical Debridement Subcutaneous -Post Debridement Size (cm) - Length 6.5 -Post Debridement Size (cm) - Width 1.5 -Post Debridement Size (cm) - Depth 2.5 -Total Square Cm 9.75 -Wound/Ulcer Outcome Not Healed -Ulcer Cleansing Rinsed/ Irrigated with Saline -Foul Odor after Cleansing No -Bioengineered Tissue No -Bleeding Controlled with Pressure -Offloading No -Treatment Response Procedure Tolerated Well Pain Scale: 0-10 Numeric Is Patient Pain Free? Yes Wound debrided: Sacral/pilonidal ulcer Type of Debridement: Excisional debridement Anesthesia Used: 4% Lidocaine Solution, 5% Lidocaine Gel Depth: Down to and including healthy tissue, in the subcutaneous layer Percentage of wound debrided: 100 Instrument Used: 5mm curette Tissue Removed: Subcutaneous tissue and slough Severity: Fat Layer Exposed Amount of bleeding with debridement: Mild Bleeding Controlled with: Pressure, Compression and gauze Patient tolerated procedure well Assessment/Plan Active Problems (Last Reviewed 01/30/20 @ 21:[address] Rudolph Jacques MD) Chronic ulcer of sacral region with fat layer exposed (Chronic) Former smoker (Chronic) Pilonidal cyst without infection (Chronic) 4.5 cm recurrent complicated extensive pilonidal cyst with possible extension to the right Assessment: 1. Recurrent complicated extensive pilonidal cyst sacral area with extension to the right. 2. Nonhealing ulcer sacral area. 3. Former smoker. 4. s/p surgical preparation sacral area with excision complicated extensive pilonidal cyst with extension to the right (48 cm2). Plan: The ulcer continues to improve. Wound Care is wound VAC. Instructed the patient's who is a nurse to continue to press down to the bone and make sure the dressing goes to the depth of the ulcer. There is the risk that if it is placed too superficially, healing occurs rapidly on a superficial level and the deeper ulcer becomes closed which can accumulate fluid leading to a recurrence. She voiced understanding. He started back to work and is doing well although he is more tired than he thought he would be. Operative cultures showed Staphylococcus epidermidis and Staphylococcus lugdunensis. He was placed on Doxycycline. Prealbumin from 02/09/20 was 31.1. Encourage nutritional supplementation with protein to help the healing process. Renewed his Percocet for pain (21 tabs) and his Valium for spasm (14 tabs). PDMP reviewed. Followup 2 weeks. [id number]: [id number] Global Visit
[2020-04-11 13:06] VITALS: BP 137/86; PULSE 107; RESP 16; TEMP 36.6; BMI 35.9
--- NOTE | 2020-04-11 15:55 | PN.PCM_ITS ---
(1) Chronic ulcer of sacral region with fat layer exposed Status: Chronic Current Visit: Yes Code(s): L98.492 - Non-pressure chronic ulcer of skin of other sites with fat layer exposed (2) Former smoker Status: Chronic Current Visit: Yes Code(s): Z87.891 - Personal history of nicotine dependence (3) Pilonidal cyst without infection Status: Chronic Current Visit: Yes Code(s): L05.91 - Pilonidal cyst without abscess Comment: 4.5 cm recurrent complicated extensive pilonidal cyst with possible extension to the right Type of Wound Date of Service: 04/11/20 Chief Complaint: Nonhealing ulcer sacral area. History of Wound: Surgery 02/08/20 - Surgical preparation sacral area with excision complicated extensive pilonidal cyst with extension to the right (48 cm2). Wound care -Discontinue the wound VAC, start daily Silver dressing changes and pack silver into the depth at the superior edge of the ulcer. Operative culture - Staphylococcus epidermidis and Staphylococcus lugdunensis. He was placed on Doxycycline. Pathology - pilonidal cyst. Prealbumin from 02/09/20 was 31.1. Encourage nutritional supplementation with protein to help the healing process. Today he denies fever. His appetite is good. Progress of Wound: Improved, he continues to have depth on the superior portion of the ulcer. - Physical Exam Vital Signs Temp Pulse Resp BP 98 F 107 H 16 137/86 H 04/11/20 13:06 04/11/20 13:06 04/11/20 13:06 04/11/20 13:06 General: Alert, Oriented x3, Cooperative HEENT: Atraumatic Oral: Moist Mucosa Lungs: Normal air movement Cardiovascular: Regular rate Extremities: No edema, Capillary Refill Less than 3 Seconds Skin: Ulcer/ Wound - Sacral ulcer that is beefy pink, there is some depth at the superior aspect of the ulcer. Wound Measurements and Assessment WC - Nurse 1 - General Ulcer Measurement Start: 03/28/20 13:12 Freq: Status: Active Protocol: Activity Type Activity Date Activity User E-Sign Co-Sign Detail Recorded Client Recorded Date Recorded By Document 04/11/20 13:06 [facility] [id number] 04/11/20 13:16 [facility] 04/11/20 13:06 Wound Center Nurse 1 [Ulcer Assessment] #1 sacrum - pilonidal -Combined with other wound No -Current Size (cm) - Length 4.4 -Current Size (cm) - Width 4 -Current Size (cm) - Depth 1.1 -Total Square Cm 17.6 -Photo Taken No -Epithelialization Small 1-33% -Tunneling No -Undermining/Tunneling No -Circular Undermining No -Exudate Amt Small -Exudate Type Serosanguineous -Wound Margin Distinct, Outline Attached -Granulation Amt Large (67-100%) -Granulation Quality Red -Slough/Fibrin Yes -Necrosis Amt Small (1-33%) -Necrotic Tissue Type Adherent Slough -Texture (Dianelys-wound Skin Appearance) Assessed, Scarring -Moisture (Dianelys-wound Skin Appearance Assessed ) -Color (Dianelys-wound Skin Appearance) Assessed -Temperature (Dianelys-wound Skin No Abnormality Appearance) (Pt Warm) -Tenderness on Palpation (Dianelys-wound No Skin Appearance) -Ulcer Cleansing soapy water -Foul Odor after Cleansing No -Anesthetic Used 4% Lidocaine Solution WC - Nurse 2 - General Ulcer CM Notes Start: 03/28/20 13:12 Freq: Status: Active Protocol: Activity Type Activity Date Activity User E-Sign Co-Sign Detail Recorded Client Recorded Date Recorded By Document 04/11/20 13:30 [id number] 04/11/20 13:35 MICHAEL 04/11/20 13:30 Wound Center Nurse 2 [Procedure/Treatment] -Time 13:30 -Correct Patient Yes -Correct Side, Site, Position Yes -Correct Procedure Yes -Procedure Performed Yes -Type of Procedure Debridement -Clinical Debridement Subcutaneous -Post Debridement Size (cm) - Length 4.2 -Post Debridement Size (cm) - Width 0.6 -Post Debridement Size (cm) - Depth 1.0 -Total Square Cm 2.52 -Wound/Ulcer Outcome Not Healed -Ulcer Cleansing Rinsed/ Irrigated with Saline -Foul Odor after Cleansing No -Bioengineered Tissue No -Bleeding Controlled with Pressure -Offloading No -Treatment Response Procedure Tolerated Well [See Physician Procedure note for Specifics] Pain Scale: 0-10 Numeric [Pain] -Is Patient Pain Free? Yes Musculoskeletal: No Tenderness to Palpation of Joints or Extremities Neurological: Neuro grossly intact Psych/Mental Status: Normal Affect, Appropriate Debridement Note Post-Debridement Measurements/Treatment WC - Nurse 2 - General Ulcer CM Notes Start: 03/28/20 13:12 Freq: Status: Active Protocol: Activity Type Activity Date Activity User E-Sign Co-Sign Detail Recorded Client Recorded Date Recorded By Document 03/28/20 13:35 [id number] 03/28/20 13:36 Document 04/11/20 13:30 [id number] 04/11/20 13:35 03/28/20 04/11/20 13:35 13:30 Wound Center Nurse 2 #1 sacrum - pilonidal -Time 13:35 13:30 -Correct Patient Yes Yes -Correct Side, Site, Position Yes Yes -Correct Procedure Yes Yes -Procedure Performed Yes Yes -Type of Procedure Debridement Debridement -Clinical Debridement Subcutaneous Subcutaneous -Post Debridement Size (cm) - Length 6.5 4.2 -Post Debridement Size (cm) - Width 1.5 0.6 -Post Debridement Size (cm) - Depth 2.5 1.0 -Total Square Cm 9.75 2.52 -Wound/Ulcer Outcome Not Healed Not Healed -Ulcer Cleansing Rinsed/ Rinsed/ Irrigated with Irrigated with Saline Saline -Foul Odor after Cleansing No No -Bioengineered Tissue No No -Bleeding Controlled with Pressure Pressure -Offloading No No -Treatment Response Procedure Procedure Tolerated Well Tolerated Well Pain Scale: 0-10 Numeric Is Patient Pain Free? Yes Yes Wound debrided: Sacral ulcer Type of Debridement: Excisional debridement Anesthesia Used: 5% Lidocaine Gel Depth: Down to and including healthy tissue, in the subcutaneous layer Percentage of wound debrided: 100 Instrument Used: 3mm curette Tissue Removed: Subcutaneous tissue and slough Severity: Fat Layer Exposed Amount of bleeding with debridement: None Bleeding Controlled with: Pressure Patient tolerated procedure well Assessment/Plan Active Problems (Last Reviewed 01/30/20 @ 21:[address] Rudolph Jacques MD) Chronic ulcer of sacral region with fat layer exposed (Chronic) Former smoker (Chronic) Pilonidal cyst without infection (Chronic) 4.5 cm recurrent complicated extensive pilonidal cyst with possible extension to the right Assessment: 1. Recurrent complicated extensive pilonidal cyst sacral area with extension to the right. 2. Nonhealing ulcer sacral area. 3. Former smoker. 4. s/p surgical preparation sacral area with excision complicated extensive pilonidal cyst with extension to the right (48 cm2). Plan: The ulcer continues to improve. Wound Care - Discontinue the wound VAC. Start daily Silver dressing changes, packing the Silver into the base of the superior aspect tunnel. He started back to work and is doing well although he is more tired than he thought he would be. Operative cultures showed Staphylococcus epidermidis and Staphylococcus lugdunensis. He was placed on Doxycycline. Prealbumin from 02/09/20 was 31.1. Encourage nutritional supplementation with protein to help the healing process. Followup 2 weeks. 111xxx-113xx: [id number] Global Visit
== END 2020-04-24 23:59 ==
LOC: WC 13:00
PROVIDERS: PCP Physician Assistant; Visit Provider Surgery
DX: L05.91 Pilonidal cyst without abscess (principal); L98.492 Non-pressure chronic ulcer of skin of other sites with fat layer exposed; Z79.899 Other long term (current) drug therapy; Z87.891 Personal history of nicotine dependence
CPT/HCPCS: 11042; 97605

== ENCOUNTER 2020-05-09 13:30 | Outpatient (RCR) | payer OTHER, SELFPAY ==
[2020-04-25 00:29] VITALS: BP 137/86; PULSE 107; RESP 16; TEMP 36.6
[2020-04-25 13:37] VITALS: BP 141/85; PULSE 99; RESP 20; TEMP 37.2; BMI 35.9
--- NOTE | 2020-04-25 16:10 | PCM.WC.PN ---
(1) Chronic ulcer of sacral region with fat layer exposed Status: Chronic Code(s): L98.492 - Non-pressure chronic ulcer of skin of other sites with fat layer exposed (2) Pilonidal cyst without infection Status: Chronic Code(s): L05.91 - Pilonidal cyst without abscess Comment: 4.5 cm recurrent complicated extensive pilonidal cyst with possible extension to the right (3) Former smoker Status: Chronic Code(s): Z87.891 - Personal history of nicotine dependence Type of Wound Date of Service: 04/25/20 Chief Complaint: Nonhealing ulcer sacral area. History of Wound: Surgery 02/08/20 - Surgical preparation sacral area with excision complicated extensive pilonidal cyst with extension to the right (48 cm2). Wound care -Daily Silver dressing changes. The depth at the superior portion has healed in. Operative culture - Staphylococcus epidermidis and Staphylococcus lugdunensis. He was placed on Doxycycline. Pathology - pilonidal cyst. Prealbumin from 02/09/20 was 31.1. Encourage nutritional supplementation with protein to help the healing process. Today he denies fever. His appetite is good. Progress of Wound: Improved, the depth on the superior portion of the ulcer has resolved. - Physical Exam Vital Signs Temp Pulse Resp BP 99 F 99 20 H 141/85 H 04/25/20 13:37 04/25/20 13:37 04/25/20 13:37 04/25/20 13:37 General: Alert, Oriented x3, Cooperative HEENT: Atraumatic Lungs: Normal air movement Cardiovascular: Regular rate Extremities: No edema, Capillary Refill Less than 3 Seconds Skin: Ulcer/ Wound - Sacral ulcer Wound Measurements and Assessment WC - Nurse 1 - General Ulcer Measurement Start: 04/25/20 13:37 Freq: Status: Active Protocol: Activity Type Activity Date Activity User E-Sign Co-Sign Detail Recorded Client Recorded Date Recorded By Document 04/25/20 13:37 DL [id number] 04/25/20 13:43 DL 04/25/20 13:37 Wound Center Nurse 1 [Ulcer Assessment] #1 sacrum - pilonidal -Current Size (cm) - Length 1.1 -Current Size (cm) - Width 0.3 -Current Size (cm) - Depth 0.1 -Total Square Cm 0.33 -Photo Taken No -Exudate Amt None Present -Wound Margin Flat & Intact -Granulation Amt Large (67-100%) -Granulation Quality [place] -Necrosis Amt Small (1-33%) -Necrotic Tissue Type Adherent Slough -Structure Exposed N/A -Texture (Dianelys-wound Skin Appearance) Scarring -Moisture (Dianelys-wound Skin Appearance No Abnormality ) -Color (Dianelys-wound Skin Appearance) No Abnormality -Temperature (Dianelys-wound Skin No Abnormality Appearance) (Pt Warm) -Tenderness on Palpation (Dianelys-wound No Skin Appearance) -Ulcer Cleansing Rinsed/ Irrigated with Saline -Foul Odor after Cleansing No -Anesthetic Used 4% Lidocaine Solution Musculoskeletal: No Tenderness to Palpation of Joints or Extremities, No Muscle Wasting Neurological: Neuro grossly intact Psych/Mental Status: Normal Affect, Appropriate Debridement Note Wound debrided: Sacral ulcer Laterality: Not Applicable Type of Debridement: Excisional debridement Anesthesia Used: 5% Lidocaine Gel Depth: Down to and including healthy tissue, in the subcutaneous layer Percentage of wound debrided: 100 Instrument Used: 3mm curette Tissue Removed: Cutaneous tissue and slough Severity: Fat Layer Exposed Amount of bleeding with debridement: Mild Bleeding Controlled with: Pressure Patient tolerated procedure well Assessment/Plan Assessment: 1. Recurrent complicated extensive pilonidal cyst sacral area with extension to the right. 2. Nonhealing ulcer sacral area. 3. Former smoker. 4. s/p surgical preparation sacral area with excision complicated extensive pilonidal cyst with extension to the right (48 cm2). Plan: The ulcer continues to improve. Wound Care - Daily Silver dressing changes, may moisten the silver if the area becomes too dry. The tunneling the superior portion of the ulcer has resolved. He started back to work and is doing well although he is more tired than he thought he would be. Operative cultures showed Staphylococcus epidermidis and Staphylococcus lugdunensis. He was placed on Doxycycline. Prealbumin from 02/09/20 was 31.1. Encourage nutritional supplementation with protein to help the healing process. Followup 2 weeks. 111xxx-113xx: [id number] Global Visit
[2020-05-09 13:42] VITALS: BP 131/93; PULSE 87; RESP 18; TEMP 36.9; BMI 35.9
--- NOTE | 2020-05-09 15:40 | PCM.WC.PN ---
(1) Chronic ulcer of sacral region with fat layer exposed Status: Chronic Current Visit: Yes Code(s): L98.492 - Non-pressure chronic ulcer of skin of other sites with fat layer exposed (2) Pilonidal cyst without infection Status: Chronic Current Visit: Yes Code(s): L05.91 - Pilonidal cyst without abscess Comment: 4.5 cm recurrent complicated extensive pilonidal cyst with possible extension to the right (3) Former smoker Status: Chronic Current Visit: Yes Code(s): Z87.891 - Personal history of nicotine dependence Type of Wound Date of Service: 05/09/20 Chief Complaint: Nonhealing ulcer sacral area. History of Wound: Surgery 02/08/20 - Surgical preparation sacral area with excision complicated extensive pilonidal cyst with extension to the right (48 cm2). He is healed today. Operative culture - Staphylococcus epidermidis and Staphylococcus lugdunensis. He was placed on Doxycycline. Pathology - pilonidal cyst. Prealbumin from 02/09/20 was 31.1. Encourage nutritional supplementation with protein to help the healing process. Today he denies fever. His appetite is good. Progress of Wound: He is healed today. - Physical Exam Vital Signs Temp Pulse Resp BP 98.5 F 87 18 131/93 H 05/09/20 13:42 05/09/20 13:42 05/09/20 13:42 05/09/20 13:42 General: Alert, Oriented x3, Cooperative HEENT: Atraumatic Oral: Moist Mucosa Lungs: Clear to auscultation, Normal air movement Cardiovascular: Regular rate, Regular Rhythm Abdomen: Bowel Sounds Present, Soft, Non Tender Extremities: No edema, Capillary Refill Less than 3 Seconds Skin: Ulcer/ Wound - Sacral ulcer is healed today. Scar tissue is present. Wound Measurements and Assessment WC - Nurse 1 - General Ulcer Measurement Start: 04/25/20 13:37 Freq: Status: Active Protocol: Activity Type Activity Date Activity User E-Sign Co-Sign Detail Recorded Client Recorded Date Recorded By Document 05/09/20 13:42 DL [id number] 05/09/20 13:50 DL 05/09/20 13:42 Wound Center Nurse 1 [Ulcer Assessment] #1 sacrum - pilonidal -Current Size (cm) - Length 0.1 -Current Size (cm) - Width 0.1 -Current Size (cm) - Depth 0.1 -Total Square Cm 0.01 -Photo Taken No -Exudate Amt None Present -Wound Margin Flat & Intact -Granulation Amt Large (67-100%) -Granulation Quality [place] -Necrosis Amt Small (1-33%) -Necrotic Tissue Type Adherent Slough -Structure Exposed N/A -Texture (Dianelys-wound Skin Appearance) Scarring -Moisture (Dianelys-wound Skin Appearance No Abnormality ) -Color (Dianelys-wound Skin Appearance) No Abnormality -Temperature (Dianelys-wound Skin No Abnormality Appearance) (Pt Warm) -Tenderness on Palpation (Dianelys-wound No Skin Appearance) -Ulcer Cleansing Wound Cleanser -Foul Odor after Cleansing No -Anesthetic Used 4% Lidocaine Solution - Nurse 2 - General Ulcer CM Notes Start: 04/25/20 13:37 Freq: Status: Active Protocol: Activity Type Activity Date Activity User E-Sign Co-Sign Detail Recorded Client Recorded Date Recorded By Document 05/09/20 14:46 [id number] 05/09/20 14:46 05/09/20 14:46 Wound Center Nurse 2 [Procedure/Treatment] -Procedure Performed No -Wound/Ulcer Outcome Healed- Epithelialized [See Physician Procedure note for Specifics] Pain Scale: 0-10 Numeric [Pain] -Is Patient Pain Free? Yes Musculoskeletal: No Tenderness to Palpation of Joints or Extremities Neurological: Neuro grossly intact Psych/Mental Status: Normal Affect, Appropriate Debridement Note Post-Debridement Measurements/Treatment - Nurse 2 - General Ulcer CM Notes Start: 04/25/20 13:37 Freq: Status: Active Protocol: Activity Type Activity Date Activity User E-Sign Co-Sign Detail Recorded Client Recorded Date Recorded By Document 04/25/20 16:13 [id number] 04/25/20 16:15 Document 05/09/20 14:46 [id number] 05/09/20 14:46 04/25/20 05/09/20 16:13 14:46 Wound Center Nurse 2 #1 sacrum - pilonidal -Time 13:52 -Correct Patient Yes -Correct Side, Site, Position Yes -Correct Procedure Yes -Procedure Performed Yes No -Type of Procedure Debridement -Clinical Debridement Subcutaneous -Post Debridement Size (cm) - Length 1.7 -Post Debridement Size (cm) - Width 0.4 -Post Debridement Size (cm) - Depth 0.2 -Total Square Cm 0.68 -Wound/Ulcer Outcome Not Healed Healed- Epithelialized -Ulcer Cleansing Rinsed/ Irrigated with Saline -Foul Odor after Cleansing No -Bleeding Controlled with Pressure -Treatment Response Procedure Tolerated Well Pain Scale: 0-10 Numeric Is Patient Pain Free? Yes Yes No debridement was completed today Assessment/Plan Active Problems (Last Reviewed 01/30/20 @ 21:[address] Rudolph Jacques MD) Chronic ulcer of sacral region with fat layer exposed (Chronic) Former smoker (Chronic) Pilonidal cyst without infection (Chronic) 4.5 cm recurrent complicated extensive pilonidal cyst with possible extension to the right Assessment: 1. Recurrent complicated extensive pilonidal cyst sacral area with extension to the right. 2. Nonhealing ulcer sacral area. 3. Former smoker. 4. s/p surgical preparation sacral area with excision complicated extensive pilonidal cyst with extension to the right (48 cm2). Plan: The sacral ulcer is healed today. Encouraged patient to keep the area clean and dry. Massage daily with lotion to help soften scarring. Follow up as needed. Office Visits / Consults: [id number] OV [id number] Est
== END 2020-05-24 23:59 ==
LOC: WC 13:30
PROVIDERS: PCP Physician Assistant; Visit Provider Surgery
DX: L05.91 Pilonidal cyst without abscess (principal); Z87.891 Personal history of nicotine dependence; L98.492 Non-pressure chronic ulcer of skin of other sites with fat layer exposed
CPT/HCPCS: 99212; G0463